=== PATIENT | female | born 1960 | race African-American/Black ===

== ENCOUNTER 2022-12-31 19:55 | Emergency (ER) | payer MEDICAID ==
[~2022-12-31] VITALS: Ht 165.1 cm; Wt 77.1 kg
[2022-12-31 20:49] VITALS: BP_SYST 123
--- NOTE | 2022-12-31 20:49 | NUR ---
Patient triaged and placed in waiting room. VSS and patient appears in no acute distress at this time. Accompanied by SELF, awaiting available bed, and MD notified of need for MSE.
--- NOTE | 2022-12-31 21:20 | NUR ---
REQUESTED FOR MSE. PT REPORTING SHE IS NOW DIZZY.
--- NOTE | 2022-12-31 21:25 | NUR ---
Patient to ER bed 06 to gown for evaluation. Side rails up. Report given to HOWIE CHARLTON.
--- NOTE | 2022-12-31 22:22 | NUR ---
pt had a surgury done and emely drain was not draining. md is at [facility] changing drain. pt a/o x 4 and ambulatory
== END 2022-12-31 22:24 | disposition home or self-care (01) ==
LOC: SED 19:55
DX: Z48.03 Encounter for change or removal of drains (principal); I10 Essential (primary) hypertension; Z79.899 Other long term (current) drug therapy
CPT/HCPCS: 99281